=== PATIENT | female | born 1975 | race Two or more races ===

== ENCOUNTER 2017-10-19 01:59 | Emergency (ER) | payer OTHER ==
[~2017-10-19] VITALS: Ht 160 cm; Wt 74.3 kg
[2017-10-19 03:44] LABS: HEMATOCRIT 37.3 % (34.6-47.8); HEMOGLOBIN 12.5 g/dL (11.7-16.4); WHITE BLOOD COUNT 7.8 x10^3/uL (3.4-10)
[2017-10-19 03:55] LABS: BLOOD UREA NITROGEN 12 mg/dL (7-18)
[2017-10-19 04:03] LABS: ASPARTATE AMINO TRANSFERASE 16 U/L (15-37); IS PT STATUS REG ER OR PRE ER? YES
[2017-10-19] MEDS ORDERED: POTASSIUM CHLORIDE 20 MEQ TAB.ER.PRT ONE (04:08)
[2017-10-19] MEDS ORDERED: POTASSIUM CHLORIDE 20 MEQ TAB.ER.PRT PO ONE (04:30)
[2017-10-19 05:04] VITALS: BP 170/87
== END 2017-10-19 05:10 | disposition home or self-care (01) ==
LOC: ED 05:00
DX: M94.0 Chondrocostal junction syndrome [Tietze] (principal); R07.89 Other chest pain; I10 Essential (primary) hypertension
CPT/HCPCS: 36415; 71020; 80053; 83690; 84484; 85025; 93005; 99285

== ENCOUNTER 2019-01-16 17:03 | Emergency (ER) | payer MEDICAID ==
[~2019-01-16] VITALS: Ht 157.5 cm; Wt 71.1 kg
[2019-01-16] MEDS ORDERED: ONDANSETRON ODT 4 MG PO ONE (19:00)
--- NOTE | 2019-01-16 19:13 | NUR ---
PRESENTS WITH VAGINAL BLEEDING W/ LLQ CRAMPING X 6 HOURS. ESTIMATES 10 WEEKS PREG BASED ON LMP. APPEARS WELL, VSS. GIVEN BLANKET/PILLOW. PLACED ON POX/NIBP. CALL [facility] IN HAND, SIDE RAILS UP. UPDATED ON ESTIMATED POC
--- NOTE | 2019-01-16 19:15 | NUR ---
TO US-TO OBTAIN UA ONCE SHE RETURNS
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
[2019-01-16 19:58] LABS: MICROSCOPIC INDICATED
[2019-01-16 20:00] LABS: CULTURE INDICATED? YES
--- NOTE | 2019-01-16 20:50 | NUR ---
Patient/Caregiver given discharge instructions and they have confirmed that they understand the instructions. Patient ambulatory with steady gait.
[2019-01-16 20:51] VITALS: BP 145/87
== END 2019-01-16 20:55 | disposition home or self-care (01) ==
LOC: ED 20:22
DX: O20.0 Threatened abortion (principal); Z3A.01 Less than 8 weeks gestation of pregnancy
CPT/HCPCS: 36415; 76801; 81001; 84702; 86901; 87086; 99284

== ENCOUNTER 2019-01-20 11:38 | Emergency (ER) | payer SELFPAY ==
[~2019-01-20] VITALS: Ht 157.5 cm; Wt 69.5 kg
[2019-01-20 12:36] LABS: MICROSCOPIC AUTO
[2019-01-20 12:38] LABS: CULTURE INDICATED? NO
--- NOTE | 2019-01-20 12:58 | NUR ---
Patient resting in [facility], waiting for ultrasound
--- NOTE | 2019-01-20 14:12 | NUR ---
Report from Quintin JEAN MD at bedside for recheck.
[2019-01-20 14:28] VITALS: BP 168/88
== END 2019-01-20 14:31 | disposition home or self-care (01) ==
LOC: ED 14:22
DX: O03.4 Incomplete spontaneous abortion without complication (principal)
CPT/HCPCS: 36415; 76801; 81001; 84702; 99284